=== PATIENT | female | born 1980 | race Caucasian/White ===

== ENCOUNTER 2018-09-17 20:20 | Emergency (ER) | payer OTHER ==
[~2018-09-17] VITALS: Ht 157.5 cm; Wt 77.1 kg
[2018-09-17] MEDS ORDERED: LOSA50 PO (22:31)
== END 2018-09-17 23:51 | disposition home or self-care (01) ==
LOC: ER 20:20
DX: R51 Headache (principal); K08.89 Other specified disorders of teeth and supporting structures; F17.210 Nicotine dependence, cigarettes, uncomplicated
CPT/HCPCS: 96374; 96375; 99283-25; J1100; J1200; J1885; J2765